=== PATIENT | male | born 1975 | race Hispanic/Latino ===

== ENCOUNTER 2017-04-09 20:36 | Emergency (ER) | payer MEDICAID ==
[2017-04-09 21:10] VITALS: BP 142/98
[2017-04-09] MEDS ORDERED: ZOFRAN IM ONE (21:17)
--- NOTE | 2017-04-09 21:23 | Emergency Department Report ---
ED Abdominal Pain HPI - General Stated Complaint: STOMACH PAIN Time Seen by Provider: 04/09/17 21:13 Source: patient, police Mode of arrival: Ambulatory Limitations: No Limitations - History of Present Illness Initial Comments: Patient is 41 years old male history of Crohn's disease status post colostomy 2 years ago. Patient brought by [employer] police officer for evaluation of abdominal pain that is started immediately after patient was in custody and handcuffed. Patient stated that he been having left lower quadrant pain and nausea and vomiting. He denied any fever, chest pain or shortness of breath. MD Complaint: abdominal pain -: This afternoon Location: [facility] Radiation: none Migration to: no migration Severity scale (0 -10): 0 - Related Data Allergies Allergy/AdvReac Type Severity Reaction Status Date / Time No Known Allergies Allergy Verified 04/09/17 21:11 ED Review of Systems ROS: Stated complaint: STOMACH PAIN Other details as noted in HPI Comment: All other systems reviewed and negative Constitutional: denies: chills, fever Respiratory: denies: cough, orthopnea, shortness of breath, SOB with exertion, SOB at rest Cardiovascular: denies: chest pain, palpitations, dyspnea on exertion, orthopnea Gastrointestinal: abdominal pain, nausea, vomiting. denies: diarrhea, constipation, hematemesis, melena, hematochezia Genitourinary: denies: urgency, dysuria, frequency, hematuria Musculoskeletal: denies: back pain Neurological: denies: headache, weakness, numbness, paresthesias, confusion, abnormal gait ED Past Medical Hx - Past Medical History Previous Medical History?: Yes Additional medical history: ileostomy with history of herniations and obstructions with surgery - Surgical History Past Surgical History?: Yes Additional Surgical History: ileostomy surgery x2 - Social History Smoking Status: Light Tobacco Smoker Substance Use Type: None ED Physical Exam - General Limitations: No Limitations General appearance: alert, in no apparent distress - Head Head exam: Present: atraumatic, normocephalic, normal inspection - Eye Eye exam: Present: normal appearance, PERRL - ENT ENT exam: Present: normal exam, normal orophraynx, mucous membranes moist - Neck Neck exam: Present: normal inspection, full ROM. Absent: tenderness, meningismus, lymphadenopathy, thyromegaly - Respiratory Respiratory exam: Present: normal lung sounds bilaterally. Absent: respiratory distress, wheezes, rales, rhonchi, stridor, chest wall tenderness, accessory muscle use, decreased breath sounds, prolonged expiratory - Cardiovascular Cardiovascular Exam: Present: regular rate, normal rhythm, normal heart sounds - GI/Abdominal GI/Abdominal exam: Present: soft, tenderness (left lower quadrant), normal bowel sounds. Absent: distended, guarding, rebound, rigid, diminished bowel sounds, hyperactive bowel sounds, hypoactive bowel sounds, organomegaly, mass, bruit, pulsatile mass, hernia - Extremities Exam Extremities exam: Present: normal inspection, full ROM, normal capillary refill - Back Exam Back exam: Present: normal inspection, full ROM. Absent: CVA tenderness (R), CVA tenderness (L), muscle spasm, paraspinal tenderness - Neurological Exam Neurological exam: Present: alert, oriented X3, CN II-XII intact, normal gait - Skin Skin exam: Present: warm, intact, normal color ED Course Vital Signs 04/09/17 21:08 Temperature 97.6 F Pulse Rate 100 H Respiratory 18 Rate Blood Pressure 142/98 [Left] O2 Sat by Pulse 99 Oximetry ED Medical Decision Making - Lab Data Result diagrams: 04/09/17 21:19 04/09/17 21:19 - Radiology Data Radiology results: report reviewed Referring Physician: QUINTON LOPEZ Patient Name: CONNIE VILLEGAS Date of : 1975 Sex: Male Report Date: 2017-04-09 Report Status: [place] [address] Cat Scan Report Signed Patient: CONNIE VILLEGAS MR#: [id number] : 1975 Acct:[id number] Age/Sex: 41 / M ADM Date: 04/09/17 Loc: ED Attending Dr: Ordering Physician: QUINTON LOPEZ Date of Service: 04/09/17 Procedure(s): CT abdomen pelvis wo con Accession Number(s): [id number] cc: QUINTON LOPEZ FINAL REPORT PROCEDURE: CT ABDOMEN PELVIS WO CON TECHNIQUE: Computerized axial tomography of the abdomen and pelvis was performed without intravenous contrast. This study is performed without intravascular contrast material and its sensitivity for abdominal and pelvic pathology, including neoplasms, inflammation, abscess, free fluid, thrombosis, arterial dissection and infarction, is reduced compared with a contrast enhanced study. HISTORY: ABDOMINAL PAIN,H/O CROHNS DISEASE, COLOSTOMY COMPARISON: No prior studies are available for comparison. FINDINGS: Visualized lower thorax: No significant abnormality. Liver: Normal size and attenuation. Spleen: Normal size and attenuation. Gallbladder and biliary system: Normal. Pancreas: Normal. Adrenals: Normal. Kidneys: Left kidney is absent. No right-sided hydronephrosis or urolithiasis is seen GI tract: Right lower quadrant ostomy is present. There appear to be 2 segments of bowel in the stoma, suggesting parastomal hernia. No obstruction or inflammation is seen. Lymph nodes and mesentery: Normal. Vasculature: Normal. Bladder: Normal. Reproductive organs: Normal. Peritoneum: No free fluid. Musculoskeletal structures: No significant abnormality. Other: Evidence of prior anterior abdominal wall hernia repair. Small fat containing left inguinal hernia. Mild presacral stranding may be related to scarring. IMPRESSION: No acute inflammatory process is identified. Transcribed By: [facility] Dictated By: AKSHAT PROCTOR M.D. Electronically Authenticated By: AKSHAT PROCTOR M.D. Signed Date/Time: 04/09/172202 DD/ 02 TD/TT: 04/09/172202 Critical care attestation.: If time is entered above; I have spent that time in minutes in the direct care of this critically ill patient, excluding procedure time. ED Disposition Clinical Impression: Abdominal pain Disposition: DC-01 TO HOME OR SELFCARE Is pt being admited?: No Condition: Stable Instructions: Abdominal Pain (ED)
[2017-04-09 21:33] LABS: Amorphous Crystals,Urine Few; Bacteria,Urine 1+ /HPF (Negative); Bilirubin,Urine NEG (Negative); Blood,Urine SM (Negative); Color,Urine Yellow (Yellow); Mucus,Urine 3+ /HPF; Urobilinogen,Urine < 2.0 mg/dL (<2.0)
[2017-04-09 21:36] LABS: Basophils % (Auto) 0.3 % (0.0-1.8); Eosinophils # (Auto) 0.1 K/mm3 (0.0-0.4); Eosinophils % (Auto) 0.7 % (0.0-4.3); Hematocrit 39.6 % (35.5-45.6); Hemoglobin 12.9 gm/dl (11.8-15.2); Lymphocytes # (Auto) 0.6 K/mm3 (1.2-5.4); Lymphocytes % (Auto) 6.4 % (13.4-35.0); Mean Corpuscular HGB Conc 33 % (32-34); Mean Corpuscular Hemoglobin 29 pg (28-32); Mean Corpuscular Volume 89 fl (84-94); Monocytes # (Auto) 0.5 K/mm3 (0.0-0.8); Monocytes % (Auto) 5.4 % (0.0-7.3); Platelet Count 221 K/mm3 (140-440); Red Blood Count 4.46 M/mm3 (3.65-5.03); Red Cell Distribution Width 13.1 % (13.2-15.2)
[2017-04-09 21:51] LABS: Alanine Aminotransferase 79 units/L (7-56); Albumin 3.7 g/dL (3.9-5); BUN/Creatinine Ratio 12; Blood Urea Nitrogen 11 mg/dL (9-20); Calcium 8.7 mg/dL (8.4-10.2); Hemolysis Index 47
--- NOTE | 2017-04-09 22:08 | Cat Scan Report ---
FINAL REPORT PROCEDURE: CT ABDOMEN PELVIS WO CON TECHNIQUE: Computerized axial tomography of the abdomen and pelvis was performed without intravenous contrast. This study is performed without intravascular contrast material and its sensitivity for abdominal and pelvic pathology, including neoplasms, inflammation, abscess, free fluid, thrombosis, arterial dissection and infarction, is reduced compared with a contrast enhanced study. HISTORY: ABDOMINAL PAIN,H/O CROHNS DISEASE, COLOSTOMY COMPARISON: No prior studies are available for comparison. FINDINGS: Visualized lower thorax: No significant abnormality. Liver: Normal size and attenuation. Spleen: Normal size and attenuation. Gallbladder and biliary system: Normal. Pancreas: Normal. Adrenals: Normal. Kidneys: Left kidney is absent. No right-sided hydronephrosis or urolithiasis is seen GI tract: Right lower quadrant ostomy is present. There appear to be 2 segments of bowel in the stoma, suggesting parastomal hernia. No obstruction or inflammation is seen. Lymph nodes and mesentery: Normal. Vasculature: Normal. Bladder: Normal. Reproductive organs: Normal. Peritoneum: No free fluid. Musculoskeletal structures: No significant abnormality. Other: Evidence of prior anterior abdominal wall hernia repair. Small fat containing left inguinal hernia. Mild presacral stranding may be related to scarring. IMPRESSION: No acute inflammatory process is identified.
== END 2017-04-09 23:14 | disposition home or self-care (01) ==
LOC: ED 20:36
DX: R10.32 Left lower quadrant pain (principal); Z93.2 Ileostomy status; F17.200 Nicotine dependence, unspecified, uncomplicated
CPT/HCPCS: 36415; 74176; 80053; 81001; 85025; 96372